=== PATIENT | female | born 1950 | race Caucasian/White ===

== ENCOUNTER → 2025-04-08 | Day surgery (SDC) | payer BC, MEDICARE ==
[2025-04-06 12:57] LABS: BASOPHILS % 0.7 % (0.0-1.0); EOSINOPHILS % 3.5 % (0.0-6.0); LYMPHOCYTES % 18.8 % (18.0-39.1); MONOCYTES % 11.2 % (4.4-11.3); NEUTROPHILS % 65.7 % (38.7-80.0); RED CELL DISTRIBUTION WIDTH 13.9 % (11.7-14.4)
[~2025-04-08] MED LIST: ACETAMINOPHEN 1000 MG/100 ML 100 ML IV ONE; ALLEGRA ALLERGY60 MG PO; ATORVASTATIN CA20 MG PO; DEXAMETHASONE SOD PHOS INJ 4 MG/ML SDV ONE; EPHEDRINE SULFATE INJ 50 MG/ML VIAL ONE; FENTANYL CITRATE/PF 100MCG/2 ML INJ ONE; LIDOCAINE HCL 2% LOCAL INJ 5 ML SDV VIAL INJ ONE; METOPROLOL TART50 MG PO; ONDANSETRON HCL INJ 2MG/ML 2ML 2 MG/ML VIAL ONE; PROPOFOL IV EMULSION 10 MG/ML 20 ML VIAL ONE; SEVOFLURANE INHAL SOLN 250 ML PEN BTL ONE; TYLENOL ARTHRITIS PO; VENTOLIN HFA18 GM INH; ZETIA10 MG PO
[2025-04-08] MEDS: CLINDAMYCIN PHOS 900MG/ 50ML 50 ML IV ONE (08:04)
[2025-04-08] MEDS: LACTATED RINGER'S 1,000 ML ONE (08:04)
[2025-04-08 11:40] VITALS: TEMP 97.9
[2025-04-08 12:05] VITALS: BP 128/81; PULSE 60; RESP 18; O2SAT 97
== END | disposition home or self-care (01) ==
LOC: OR 06:56
PROVIDERS: ATTEND Podiatrist Foot Surgery
DX: M67.472 Ganglion, left ankle and foot (principal); M20.42 Other hammer toe(s) (acquired), left foot; M25.775 Osteophyte, left foot; M19.90 Unspecified osteoarthritis, unspecified site; I10 Essential (primary) hypertension; E78.5 Hyperlipidemia, unspecified; J45.909 Unspecified asthma, uncomplicated; K21.9 Gastro-esophageal reflux disease without esophagitis; Z88.1 Allergy status to other antibiotic agents; Z88.0 Allergy status to penicillin; Z01.810 Encounter for preprocedural cardiovascular examination; Z01.812 Encounter for preprocedural laboratory examination; Z01.818 Encounter for other preprocedural examination; Z79.51 Long term (current) use of inhaled steroids; Z79.899 Other long term (current) drug therapy
CPT/HCPCS: 28090; 28285; 36415; 71046; 85025; 88304; 93005; J0131; J1100; J2003; J2405; J2704; J3010; J7121; 76000